=== PATIENT | female | born 1965 | race Caucasian/White ===

== ENCOUNTER → 2023-10-14 15:48 | Outpatient (REF) | payer BC, SELFPAY | LOC: RAD 15:48 | PROVIDERS: ATTENDING PHYSICIAN Internal Medicine Critical Care Medicine | DX: R91.1 Solitary pulmonary nodule (principal) | CPT/HCPCS: 71250 ==

== ENCOUNTER → 2024-09-25 10:27 | Outpatient (REF) | payer SELFPAY | LOC: HWRAD 10:27 | DX: E78.00 Pure hypercholesterolemia, unspecified (principal) | CPT/HCPCS: 75571 ==

== ENCOUNTER → 2024-12-28 13:56 | Outpatient (REF) | payer OTHER, SELFPAY | LOC: PAVMRI 13:56 | PROVIDERS: ATTENDING PHYSICIAN Internal Medicine | DX: M54.2 Cervicalgia (principal); G44.86 Cervicogenic headache | CPT/HCPCS: 72141 ==